=== PATIENT | female | born 1950 | race Caucasian/White ===

== ENCOUNTER 2017-01-11 20:08 | Inpatient (IN) | payer MEDICARE, MEDICAID ==
[~2017-01-11] VITALS: Ht 160 cm; Wt 92.5 kg
[2017-01-11 20:30] VITALS: BP 159/97
[2017-01-11] MEDS ORDERED: ZOLPIDEM TARTRATE 5 MG TABLET PO PRN (21:00)
[2017-01-11] MEDS ORDERED: MAG HYDROX/AL HYDROX/SIMETH 30 ML UDC PO PRN (21:00)
[2017-01-11] MEDS ORDERED: ACETAMINOPHEN 325 MG TABLET PO PRN (21:00)
[2017-01-11] MEDS ORDERED: LORAZEPAM 0.5 MG TABLET PO PRN (21:00)
[2017-01-11] MEDS ORDERED: MAGNESIUM HYDROXIDE 30 ML UDC PO PRN (21:00)
[2017-01-12] MEDS ORDERED: DISU250T7 PO (02:08)
[2017-01-12] MEDS ORDERED: AMLO5TAB2 PO (02:08)
[2017-01-12] MEDS ORDERED: DEXM20CP PO (02:08)
[2017-01-12] MEDS ORDERED: VILA40TA PO (02:08)
[2017-01-12] MEDS ORDERED: PREG75CA PO (02:08)
[2017-01-12] MEDS ORDERED: LAMO100T PO (02:08)
[2017-01-12] MEDS ORDERED: AMOX875T2 PO (02:08)
[2017-01-12 07:52] LABS: BASOPHILS % (AUTO) 0.9 % (0.0-2.0); DIFF TOTAL % 100 %; EOSINOPHILS # (AUTO) 0.2 /CMM (0.0-0.7); EOSINOPHILS % (AUTO) 4.8 % (0.0-6.0); HEMATOCRIT 35 % (33-45); HEMOGLOBIN 11.1 g/dL (11.5-14.8); LYMPHOCYTES # (AUTO) 1.2 /CMM (0.8-4.8); LYMPHOCYTES % (AUTO) 30.8 % (20.0-44.0); MEAN CORPUSCULAR HEMOGLOBIN 26 PG (26.0-33.0); MEAN CORPUSCULAR HGB CONC 32 g/dl (31.0-36.0); MEAN CORPUSCULAR VOLUME 82 fL (82-100); MONOCYTES # (AUTO) 0.7 /CMM (0.1-1.30); MONOCYTES % (AUTO) 16.8 % (2.0-12.0); NEUTROPHILS # (AUTO) 1.9 /CMM (1.8-8.9); NEUTROPHILS % (AUTO) 46.7 % (43.0-81.0); PLATELET COUNT (AUTO) 219 /CMM (150-450); RED BLOOD CELL COUNT(AUTO) 4.27 MIL/uL (4.0-5.2)
[2017-01-12 08:00] VITALS: BP 140/95
[2017-01-12 08:22] LABS: ALBUMIN 3.3 g/dL (3.4-5.0); BILIRUBIN,TOTAL 0.7 mg/dL (0.2-1.0); CALCIUM, SERUM 8.7 mg/dL (8.5-10.1); PHOSPHORUS 3.1 mg/dL (2.5-4.9); TOTAL PROTEIN, SERUM 6.5 g/dL (6.4-8.2)
[2017-01-12] MEDS ORDERED: MULT-1005 PO (08:51)
[2017-01-12] MEDS ORDERED: CLON1TAB4 PO (08:51)
[2017-01-12] MEDS ORDERED: FLUO-120 PO (08:51)
[2017-01-12] MEDS ORDERED: IBUP-51 PO (08:52)
[2017-01-12] MEDS: LamoTRIgine 100 MG TABLET PO SCH ×2 (12:02→21:37)
[2017-01-12] MEDS: clonazePAM 0.5 MG TABLET PO SCH ×2 (12:02→17:00)
[2017-01-12] MEDS ORDERED: Z GUARD REMEDY 2 OZ OINT TP PRN (12:30)
[2017-01-12] MEDS: Z GUARD REMEDY 2 OZ OINT TP SCH ×2 (13:22→17:19)
[2017-01-12] MEDS: NEOMY SULF/BACITRAC ZN/POLY 15 GM TUBE TP SCH (13:22)
[2017-01-12 16:00] VITALS: BP 158/90
[2017-01-12 16:04] VITALS: BP 158/90
[2017-01-12] MEDS ORDERED: IBUPROFEN 200 MG TABLET PO PRN (18:00)
[2017-01-12 20:00] VITALS: BP 141/82
[2017-01-12] MEDS: OLANZAPINE 5 MG/TAB.RAPDIS PO SCH (22:27)
[2017-01-13] MEDS: Z GUARD REMEDY 2 OZ OINT TP SCH ×2 (06:20→17:35)
[2017-01-13] MEDS: MULTIVIT, IRON, MIN NO. 8, FA 1 TAB TABLET PO SCH (08:48)
[2017-01-13] MEDS: LamoTRIgine 100 MG TABLET PO SCH ×2 (08:48→21:08)
[2017-01-13] MEDS: clonazePAM 0.5 MG TABLET PO SCH ×3 (08:48→17:00)
[2017-01-13] MEDS: NEOMY SULF/BACITRAC ZN/POLY 15 GM TUBE TP SCH (08:49)
[2017-01-13] MEDS: FLUOXETINE HCL 20 MG CAPSULE PO SCH (08:49)
[2017-01-13] MEDS ORDERED: AMLODIPINE BESYLATE 5 MG TABLET PO SCH (09:00)
[2017-01-13 09:08] VITALS: BP 176/69
[2017-01-13 11:38] LABS: PHENCYCLIDINE SCREEN,URINE NEGATIVE (NEGATIVE)
[2017-01-13 11:41] LABS: KETONES,URINE TRACE (NEGATIVE); LEUKOCYTE ESTERASE ,URINE NEGATIVE (NEGATIVE)
[2017-01-13 11:42] LABS: CANNABINOID, URINE POSITIVE (NEGATIVE)
[2017-01-13 11:53] LABS: ADD UA MICROSCOPIC YES
[2017-01-13 12:36] LABS: ADD URINE CULTURE NO; RBC,URINE NONE SEEN /HPF (0-2); WBC,URINE 0-2 /HPF (0-3)
[2017-01-13 16:17] VITALS: BP 129/83
[2017-01-13 20:00] VITALS: BP 126/98
[2017-01-13] MEDS: OLANZAPINE 5 MG/TAB.RAPDIS PO SCH (22:09)
[2017-01-14 08:00] VITALS: BP 136/86
[2017-01-14] MEDS: MULTIVIT, IRON, MIN NO. 8, FA 1 TAB TABLET PO SCH (09:45)
[2017-01-14] MEDS: FLUOXETINE HCL 20 MG CAPSULE PO SCH (09:45)
[2017-01-14] MEDS: AMLODIPINE BESYLATE 5 MG TABLET PO SCH (09:45)
[2017-01-14] MEDS: LamoTRIgine 100 MG TABLET PO SCH ×2 (09:46→21:42)
[2017-01-14] MEDS: clonazePAM 0.5 MG TABLET PO SCH ×3 (09:46→17:24)
[2017-01-14] MEDS: Z GUARD REMEDY 2 OZ OINT TP SCH ×2 (09:47→18:04)
[2017-01-14] MEDS: NEOMY SULF/BACITRAC ZN/POLY 15 GM TUBE TP SCH (09:48)
[2017-01-14 16:00] VITALS: BP 143/94
[2017-01-14 20:15] VITALS: BP 145/78
[2017-01-14] MEDS: OLANZAPINE 5 MG/TAB.RAPDIS PO SCH (21:42)
[2017-01-15] MEDS: Z GUARD REMEDY 2 OZ OINT TP SCH ×2 (05:27→17:31)
[2017-01-15 08:00] VITALS: BP 152/90
[2017-01-15] MEDS: LamoTRIgine 100 MG TABLET PO SCH ×2 (08:58→21:23)
[2017-01-15] MEDS: clonazePAM 0.5 MG TABLET PO SCH ×3 (08:58→17:27)
[2017-01-15] MEDS: AMLODIPINE BESYLATE 5 MG TABLET PO SCH (08:58)
[2017-01-15] MEDS: FLUOXETINE HCL 20 MG CAPSULE PO SCH (08:59)
[2017-01-15] MEDS: NEOMY SULF/BACITRAC ZN/POLY 15 GM TUBE TP SCH (08:59)
[2017-01-15] MEDS: MULTIVIT, IRON, MIN NO. 8, FA 1 TAB TABLET PO SCH (08:59)
[2017-01-15 16:00] VITALS: BP 150/94
[2017-01-15 20:00] VITALS: BP 138/77
[2017-01-15] MEDS: BENZONATATE 100 MG CAPSULE PO PRN (21:23)
[2017-01-15] MEDS: OLANZAPINE 5 MG/TAB.RAPDIS PO SCH (21:23)
[2017-01-16] MEDS: Z GUARD REMEDY 2 OZ OINT TP SCH ×2 (06:05→18:00)
[2017-01-16 08:00] VITALS: BP 115/75
[2017-01-16] MEDS: FLUOXETINE HCL 20 MG CAPSULE PO SCH (08:52)
[2017-01-16] MEDS: MULTIVIT, IRON, MIN NO. 8, FA 1 TAB TABLET PO SCH (08:53)
[2017-01-16] MEDS: AMLODIPINE BESYLATE 5 MG TABLET PO SCH (08:53)
[2017-01-16] MEDS: LamoTRIgine 100 MG TABLET PO SCH ×2 (08:53→21:18)
[2017-01-16] MEDS: clonazePAM 0.5 MG TABLET PO SCH ×3 (08:54→17:40)
[2017-01-16] MEDS: NEOMY SULF/BACITRAC ZN/POLY 15 GM TUBE TP SCH (08:55)
[2017-01-16] MEDS: BENZONATATE 100 MG CAPSULE PO PRN ×2 (09:57→17:39)
[2017-01-16 16:00] VITALS: BP 124/82
[2017-01-16 21:16] VITALS: BP 132/91
[2017-01-16] MEDS: OLANZAPINE 5 MG/TAB.RAPDIS PO SCH (21:19)
[2017-01-17] MEDS: Z GUARD REMEDY 2 OZ OINT TP SCH ×2 (06:36→10:15)
[2017-01-17 08:00] VITALS: BP 136/91
[2017-01-17] MEDS: FLUOXETINE HCL 20 MG CAPSULE PO SCH (10:11)
[2017-01-17] MEDS: MULTIVIT, IRON, MIN NO. 8, FA 1 TAB TABLET PO SCH (10:11)
[2017-01-17] MEDS: LamoTRIgine 100 MG TABLET PO SCH ×2 (10:13→21:24)
[2017-01-17] MEDS: NEOMY SULF/BACITRAC ZN/POLY 15 GM TUBE TP SCH (10:14)
[2017-01-17] MEDS: BENZONATATE 100 MG CAPSULE PO PRN (10:14)
[2017-01-17] MEDS: clonazePAM 0.5 MG TABLET PO SCH ×3 (10:14→18:11)
[2017-01-17] MEDS: AMLODIPINE BESYLATE 5 MG TABLET PO SCH (10:16)
[2017-01-17 16:00] VITALS: BP 126/79
[2017-01-17] MEDS: CEPHALEXIN MONOHYDRATE 250 MG CAPSULE PO SCH ×2 (18:12→21:24)
[2017-01-17 20:00] VITALS: BP 127/64
[2017-01-17] MEDS: OLANZAPINE 5 MG/TAB.RAPDIS PO SCH (21:24)
[2017-01-18] MEDS: Z GUARD REMEDY 2 OZ OINT TP SCH (05:36)
[2017-01-18] MEDS: CEPHALEXIN MONOHYDRATE 250 MG CAPSULE PO SCH ×2 (05:37→12:00)
[2017-01-18 08:00] VITALS: BP 114/76
[2017-01-18] MEDS: clonazePAM 0.5 MG TABLET PO SCH ×2 (08:17→12:00)
[2017-01-18 08:18] VITALS: BP 114/76
[2017-01-18] MEDS: AMLODIPINE BESYLATE 5 MG TABLET PO SCH (08:18)
[2017-01-18] MEDS: LamoTRIgine 100 MG TABLET PO SCH (08:18)
[2017-01-18] MEDS: FLUOXETINE HCL 20 MG CAPSULE PO SCH (08:18)
[2017-01-18] MEDS: MULTIVIT, IRON, MIN NO. 8, FA 1 TAB TABLET PO SCH (08:18)
[2017-01-18] MEDS: NEOMY SULF/BACITRAC ZN/POLY 15 GM TUBE TP SCH (08:21)
== END 2017-01-18 12:30 | disposition home or self-care (01) | DRG 885 ==
LOC: GPS 20:08
PROVIDERS: ADMIT Psychiatry & Neurology Psychiatry; ATTEND Internal Medicine
DX: F33.3 Major depressive disorder, recurrent, severe with psychotic symptoms (principal); N39.0 Urinary tract infection, site not specified; G89.29 Other chronic pain; Z81.8 Family history of other mental and behavioral disorders; I10 Essential (primary) hypertension; F29 Unspecified psychosis not due to a substance or known physiological condition
CPT/HCPCS: 36415; 80053-TC; 80061-TC; 80305; 81000-TC; 83735-TC; 84100-TC; 85025-TC; 87086-TC; 87186-TC